=== PATIENT | female | born 1975 | race Caucasian/White ===

== ENCOUNTER 2016-06-27 16:06 | Emergency (ER) | payer BC ==
[2016-06-27 17:29] VITALS: BP 138/92
--- NOTE | 2016-06-27 17:39 | UC ---
Throat Pain/Nasal Ad HPI - HPI Summary HPI Summary: complaint nasal congestion that started 9 days ago frequent headaches, ears feels plugged productive cough coughing is worse at night hasn't used albuterol inhaler because it has run out taking motrin for headache relief completed tamiflu last week for dx of influenza - History of Current Complaint Chief Complaint: UCGeneralIllness Stated Complaint: SINUS COMPLAINT Time Seen by Provider: 06/27/16 17:33 Hx Obtained From: Patient Hx Last Menstrual Period: 06/13/16 - Allergies/Home Medications Allergies/Adverse Reactions: Allergies Allergy/AdvReac Type Severity Reaction Status Date / Time Penicillins Allergy Severe hives, rash Verified 06/27/16 17:22 Sulfa Drugs Allergy Unknown Unknown Verified 06/27/16 17:22 Reaction Details Morphine AdvReac Severe Vomiting Verified 06/27/16 17:22 Clarithromycin [From Biaxin] AdvReac Intermediate stomach Verified 06/27/16 17: 22 upset Home Medications: Home Medications Pediatric Multiple Vitamin W/ [Flintstones Gummies Plus] 1 chw PO DAILY [History Confirmed 06/27/16] PMH/Surg Hx/FS Hx/Imm Hx Previously Healthy: Yes Respiratory History Of: Reports: Asthma - Surgical History Surgical History: Yes Surgery Procedure, Year, and Place: . stomach surgery. jane. uterine ablation - Family History Known Family History: Negative: Cardiac Disease, Hypertension, Diabetes, Blood Disorder - Social History Occupation: Employed Full-time Lives: With Family Alcohol Use: None Substance Use Type: None Smoking Status (MU): Never Smoked Tobacco - Immunization History Most Recent Influenza Vaccination: 01/2016 Review of Systems Constitutional: Negative Skin: Negative Eyes: Negative ENT: Nasal Discharge Respiratory: Cough Cardiovascular: Negative Gastrointestinal: Negative Genitourinary: Negative Motor: Negative Neurovascular: Negative Musculoskeletal: Negative Neurological: Headache Psychological: Negative All Other Systems Reviewed And Are Negative: Yes Physical Exam Triage Information Reviewed: Yes Appearance: No Pain Distress, Well-Nourished Vital Signs: Initial Vital Signs Temp 97.6 F 06/27/16 17:25 Pulse 83 06/27/16 17:25 Resp 16 06/27/16 17:25 BP 138/92 06/27/16 17:25 Pulse Ox 99 06/27/16 17:25 Vital Signs Reviewed: Yes Eyes: Positive: Conjunctiva Clear ENT: Positive: Pharyngeal erythema, Nasal congestion, Nasal drainage, TMs normal Neck: Positive: No Lymphadenopathy Respiratory: Positive: No respiratory distress, No accessory muscle use, Wheezing. Negative: Rhonchi, Stridor Cardiovascular: Positive: RRR, No Murmur, Pulses Normal Abdomen Description: Positive: Nontender, Soft Bowel Sounds: Positive: Present Musculoskeletal: Positive: No Edema Neurological: Positive: Alert Psychological Exam: Normal Skin Exam: Normal Throat Pain/Nasal Course/Dx - Differential Dx/Diagnosis Differential Diagnosis/HQI/PQRI: Sinusitis, URI, Other - asthma Provider Diagnoses: asthma exacerbation, elevated blood pressure Discharge - Discharge Plan Condition: Stable Disposition: HOME Prescriptions: Albuterol HFA INHALER* [Ventolin HFA Inhaler*] 2 puff INH Q4H PRN #1 mdi PRN Reason: Wheezing Azithromycin TAB* [Zithromax TAB (Z-ANA LILIA) 250 mg #6 tabs] 2 tab PO .TODAY, THEN 1 DAILY #1 ana lilia predniSONE TAB* [Deltasone TAB*] 50 mg PO DAILY #5 tab Patient Education Materials: Asthma (ED) Referrals: Pilar Agarwal MD [Primary Care Provider] - Additional Instructions: Please take antibiotic as directed Use your albuterol inhaler every 4-6 hours when needed for wheezing, shortness of breath or uncontrolled coughing. Increase fluids and rest Take acetaminophen or ibuprofen for fever or pain Please review your discharge instructions. If your symptoms do not improve please call your primary care provider or return to urgent care. Your blood pressure is elevated. Please contact your primary care provider for further evaluation
== END 2016-06-27 17:49 | disposition home or self-care (01) ==
LOC: UCCORT 16:06
DX: J45.901 Unspecified asthma with (acute) exacerbation (principal); R03.0 Elevated blood-pressure reading, without diagnosis of hypertension; Z88.1 Allergy status to other antibiotic agents; Z88.5 Allergy status to narcotic agent; Z88.0 Allergy status to penicillin; Z88.2 Allergy status to sulfonamides; Z90.49 Acquired absence of other specified parts of digestive tract
CPT/HCPCS: 99212; G0463

== ENCOUNTER 2018-02-06 07:06 | Emergency (ER) | payer BC ==
[2018-02-06 07:27] VITALS: BP 131/74
--- NOTE | 2018-02-06 07:43 | UC ---
Throat Pain/Nasal Ad HPI - HPI Summary HPI Summary: sinus pain and pressure x 10 days , + nasal congestion with yellow / green discharge, + pnd, cough , no fever, no chills bilateral eye redness, itchy eyes, yellow crusty discharge since last night - History of Current Complaint Chief Complaint: UCRespiratory Stated Complaint: SINUS COMPLAINT Time Seen by Provider: 02/06/18 07:31 Hx Obtained From: Patient Hx Last Menstrual Period: 01/17/18 ?: No Onset/Duration: Gradual Onset, Lasting Days - 10, Still Present Severity: Moderate Pain Intensity: 0 Cough: Nonproductive Associated Signs & Symptoms: Positive: Sinus Discomfort, Nasal Discharge. Negative: Dysphagia, FB Sensation, Drooling, Wheezing, Hoarseness, Fever, Vomiting, Rash - Allergies/Home Medications Allergies/Adverse Reactions: Allergies Allergy/AdvReac Type Severity Reaction Status Date / Time clarithromycin Allergy Stomach Verified 02/06/18 07:35 upset Penicillins Allergy Hives, rash Verified 02/06/18 07:33 Sulfa (Sulfonamide Allergy Unknown Verified 02/06/18 07:33 Antibiotics) Reaction Details morphine AdvReac Severe Vomiting Verified 02/06/18 07:35 Home Medications: Home Medications Fluticasone NASAL SPRAY 50MCG* [Flonase NASAL SPRAY 50MCG*] 50 mcg BOTH NARES DAILY 02/06/18 [History Confirmed 02/06/18] Pantoprazole Sodium 40 mg PO DAILY 02/06/18 [History Confirmed 02/06/18] PMH/Surg Hx/FS Hx/Imm Hx Respiratory History: Asthma GI/ History: Gastroesophageal Reflux - Surgical History Surgical History: Yes Surgery Procedure, Year, and Place: . gastric surgery 1995. jane. uterine ablation - Family History Known Family History: Negative: Cardiac Disease, Hypertension, Diabetes, Blood Disorder - Social History Alcohol Use: None Substance Use Type: None Smoking Status (MU): Never Smoked Tobacco - Immunization History Most Recent Influenza Vaccination: 01/2016 Review of Systems Constitutional: Negative Skin: Negative Eyes: Drainage, Eye Redness ENT: Nasal Discharge, Sinus Congestion, Sinus Pain/Tenderness Respiratory: Cough Cardiovascular: Negative Gastrointestinal: Negative Is Patient Immunocompromised?: No All Other Systems Reviewed And Are Negative: Yes Physical Exam Triage Information Reviewed: Yes Appearance: Well-Appearing, No Pain Distress, Well-Nourished Vital Signs: Initial Vital Signs Temp 98.3 F 02/06/18 07:21 Pulse 80 02/06/18 07:21 Resp 20 02/06/18 07:21 BP 131/74 02/06/18 07:21 Pulse Ox 100 02/06/18 07:21 Eyes: Positive: Conjunctiva Inflamed, Discharge ENT: Positive: Normal ENT inspection, Hearing grossly normal, Pharynx normal, Nasal congestion, Nasal drainage, TMs normal, Sinus tenderness Neck exam: Normal Neck: Positive: Supple, Nontender, No Lymphadenopathy Respiratory: Positive: Chest non-tender, Lungs clear, Normal breath sounds Cardiovascular: Positive: RRR, No Murmur, Pulses Normal Skin Exam: Normal Throat Pain/Nasal Course/Dx - Differential Dx/Diagnosis Provider Diagnoses: sinusitis. conjunctivitis Discharge - Sign-Out/Discharge Documenting (check all that apply): Patient Departure All imaging exams completed and their final reports reviewed: No Studies - Discharge Plan Condition: Stable Disposition: HOME Prescriptions: Azithromycin TAB* [Zithromax TAB (Z-ANA LILIA) 250 mg #6 tabs] 2 tab PO .TODAY, THEN 1 DAILY #1 ana lilia Tobramycin 0.3% OPHTH.TIAN* 1 drop BOTH EYES Q4H #1 btl Patient Education Materials: Sinusitis (ED), Conjunctivitis (ED) Referrals: No Primary Care Phys,NOPCP [Primary Care Provider] - 7 Days - Billing Disposition and Condition Condition: STABLE Disposition: Home
== END 2018-02-06 07:45 | disposition home or self-care (01) ==
LOC: UCCORT 07:06
DX: J32.9 Chronic sinusitis, unspecified (principal); H10.9 Unspecified conjunctivitis; K21.9 Gastro-esophageal reflux disease without esophagitis; J45.909 Unspecified asthma, uncomplicated; Z88.1 Allergy status to other antibiotic agents; Z88.2 Allergy status to sulfonamides; Z88.5 Allergy status to narcotic agent; Z88.0 Allergy status to penicillin; Z79.899 Other long term (current) drug therapy
CPT/HCPCS: 99212; G0463

== ENCOUNTER 2018-04-24 09:35 | Emergency (ER) | payer BC ==
[2018-04-24 09:55] VITALS: BP 125/82
--- NOTE | 2018-04-24 10:08 | UC ---
Throat Pain/Nasal Ad HPI - HPI Summary HPI Summary: 42 yo female presents with sinus pain/pressure/congestion for the last 5 days, but has had issues with allergies and a runny nose for the last 3 weeks. She has been taking sudafed otc with no relief. Denies fever, chills, sore throat, cough. - History of Current Complaint Chief Complaint: UCRespiratory Stated Complaint: SINUS ISSUE Time Seen by Provider: 04/24/18 10:08 Hx Obtained From: Patient Hx Last Menstrual Period: 04/03/18 Onset/Duration: Gradual Onset Severity: Mild Pain Intensity: 2 Pain Scale Used: 0-10 Numeric - Allergies/Home Medications Allergies/Adverse Reactions: Allergies Allergy/AdvReac Type Severity Reaction Status Date / Time clarithromycin Allergy Stomach Verified 04/24/18 09:55 upset Penicillins Allergy Hives, rash Verified 04/24/18 09:55 Sulfa (Sulfonamide Allergy Unknown Verified 04/24/18 09:55 Antibiotics) Reaction Details morphine AdvReac Severe Vomiting Verified 04/24/18 09:55 Home Medications: Home Medications Ca/D3/Mag/Zinc/Rodnye/Dandy/Mgbor [Caltrate 600-D3-Min Chew Tab] 1 each PO DAILY [History Confirmed 04/24/18] Escitalopram Oxalate [Lexapro 20 mg] 20 mg PO DAILY 04/24/18 [History Confirmed 04/24/18] L.acidoph,Paracasei, B.lactis [Probiotic] 1 each PO DAILY 04/24/18 [History Confirmed 04/24/18] PMH/Surg Hx/FS Hx/Imm Hx Respiratory History: Asthma GI/ History: Gastroesophageal Reflux Psychological History: Anxiety, Depression - Surgical History Surgical History: Yes Surgery Procedure, Year, and Place: . gastric surgery 1995. jane. uterine ablation - Family History Known Family History: Negative: Cardiac Disease, Hypertension, Diabetes, Blood Disorder - Social History Occupation: Employed Full-time Lives: With Family Alcohol Use: None Substance Use Type: None Smoking Status (MU): Never Smoked Tobacco - Immunization History Most Recent Influenza Vaccination: 01/2016 Review of Systems All Other Systems Reviewed And Are Negative: Yes Constitutional: Positive: Negative Skin: Positive: Negative Eyes: Positive: Negative ENT: Positive: Nasal Discharge, Sinus Congestion, Sinus Pain/Tenderness Respiratory: Positive: Negative Cardiovascular: Positive: Negative Gastrointestinal: Positive: Negative Neurovascular: Positive: Negative Neurological: Positive: Negative Psychological: Positive: Negative Physical Exam - Summary Physical Exam Summary: GENERAL: NAD. WDWN. No pain distress. SKIN: No rashes, sores, lesions, or open wounds. HEENT: Head: AT/NC Eyes: EOM intact. Conjunctiva clear without inflammation or discharge. Ears: Hearing grossly normal. TMs intact, no bulging, erythema, or edema. Nose: Nasal mucosa mildly swollen and erythematous with yellow/ clear discharge. TTP maxillary and frontal sinus. Positive post nasal drip Throat: Posterior oropharynx without exudates, erythema, or tonsillar enlargement. Uvula midline. NECK: Supple. Nontender. No lymphadenopathy. CHEST: CTAB. No r/r/w. No accessory muscle use. Breathing comfortably and in no distress. CV: RRR. Without m/r/g. Pulses intact. NEURO: Alert. PSYCH: Age appropriate behavior. Triage Information Reviewed: Yes Vital Signs: Initial Vital Signs Temp 98.7 F 04/24/18 09:51 Pulse 82 04/24/18 09:51 Resp 18 04/24/18 09:51 BP 125/82 04/24/18 09:51 Pulse Ox 100 04/24/18 09:51 Vital Signs Reviewed: Yes Throat Pain/Nasal Course/Dx - Course Course Of Treatment: Sinusitis - Differential Dx/Diagnosis Provider Diagnosis: Sinusitis Discharge - Sign-Out/Discharge Documenting (check all that apply): Patient Departure All imaging exams completed and their final reports reviewed: No Studies - Discharge Plan Condition: Stable Disposition: HOME Prescriptions: Azithromycin TAB* [Zithromax TAB (Z-ANA LILIA) 250 mg #6 tabs] 2 tab PO .TODAY, THEN 1 DAILY #1 ana lilia Patient Education Materials: Sinusitis (ED) Referrals: Cristine Pinto MD [Primary Care Provider] - Additional Instructions: If you develop a fever, shortness of breath, chest pain, new or worsening symptoms - please call your PCP or go to the ED. - Billing Disposition and Condition Condition: STABLE Disposition: Home
== END 2018-04-24 10:18 | disposition home or self-care (01) ==
LOC: UCEAST 09:35
DX: J32.9 Chronic sinusitis, unspecified (principal); F41.9 Anxiety disorder, unspecified; F32.9 Major depressive disorder, single episode, unspecified; Z88.1 Allergy status to other antibiotic agents; Z88.5 Allergy status to narcotic agent; Z88.0 Allergy status to penicillin; Z88.2 Allergy status to sulfonamides
CPT/HCPCS: 99212; G0463

== ENCOUNTER 2019-01-13 10:34 | Emergency (ER) | payer BC ==
[2019-01-13 11:47] VITALS: BP 127/84
--- NOTE | 2019-01-13 12:04 | UC ---
Throat Pain/Nasal Ad HPI - HPI Summary HPI Summary: 4 DAYS AGO , HOARSNESS, COUGH, CHEST CONGESITON, RUNNY NOSE, FTIUGE. NO FEVER OR CHILLS. NO HEAD OR BODY ACHES. - History of Current Complaint Chief Complaint: UCRespiratory Stated Complaint: COUGH,CONGESTION Time Seen by Provider: 01/13/19 12:02 Hx Obtained From: Patient Hx Last Menstrual Period: 01/12/19 ?: No Onset/Duration: Sudden Onset, Lasting Days Severity: Mild Pain Intensity: 0 Associated Signs & Symptoms: Positive: Dysphagia, Hoarseness, Sinus Discomfort, Nasal Discharge - Allergies/Home Medications Allergies/Adverse Reactions: Allergies Allergy/AdvReac Type Severity Reaction Status Date / Time clarithromycin Allergy Stomach Verified 01/13/19 11:39 upset Penicillins Allergy Hives, rash Verified 01/13/19 11:39 Sulfa (Sulfonamide Allergy Unknown Verified 01/13/19 11:39 Antibiotics) Reaction Details morphine AdvReac Severe Vomiting Verified 01/13/19 11:39 PMH/Surg Hx/FS Hx/Imm Hx Previously Healthy: Yes Respiratory History: Asthma - Surgical History Surgical History: Yes Surgery Procedure, Year, and Place: . gastric surgery 1995. jane. uterine ablation - Family History Known Family History: Negative: Cardiac Disease, Hypertension, Diabetes, Blood Disorder - Social History Alcohol Use: None Substance Use Type: None Smoking Status (MU): Never Smoked Tobacco - Immunization History Most Recent Influenza Vaccination: 01/2016 Review of Systems All Other Systems Reviewed And Are Negative: Yes Constitutional: Positive: Chills, Fatigue ENT: Positive: Sore Throat, Nasal Discharge, Sinus Congestion Respiratory: Positive: Shortness Of Breath, Cough Is Patient Immunocompromised?: No Physical Exam Triage Information Reviewed: Yes Appearance: Well-Nourished, Ill-Appearing, Pain Distress Vital Signs: Initial Vital Signs Temp 98.7 F 01/13/19 11:41 Pulse 89 01/13/19 11:41 Resp 20 01/13/19 11:41 BP 127/84 01/13/19 11:41 Pulse Ox 99 01/13/19 11:41 Vital Signs Reviewed: Yes Eye Exam: Normal ENT: Positive: Pharyngeal erythema - withpND Dental Exam: Normal Neck exam: Normal Respiratory: Positive: Chest non-tender, No respiratory distress, Decreased breath sounds, Rhonchi, Wheezing Cardiovascular Exam: Normal Cardiovascular: Positive: RRR, No Murmur, Pulses Normal Abdominal Exam: Normal Bowel Sounds: Positive: Present Musculoskeletal Exam: Normal Neurological Exam: Normal Psychological Exam: Normal Skin Exam: Normal Throat Pain/Nasal Course/Dx - Course Course Of Treatment: hx obtained, exam performed,meds reviewed, given a duo neb and prescribed prednisone and albuterol was treated for a sinus infection 2 weeks ago - Differential Dx/Diagnosis Differential Diagnosis/HQI/PQRI: Otitis Media, Pharyngitis, Sinusitis Provider Diagnosis: Bronchitis Discharge ED - Sign-Out/Discharge Documenting (check all that apply): Patient Departure All imaging exams completed and their final reports reviewed: No Studies - Discharge Plan Condition: Stable Disposition: HOME Prescriptions: Albuterol HFA INHALER* [Ventolin HFA Inhaler*] 2 puff INH Q4H PRN #1 mdi PRN Reason: Cough predniSONE [Prednisone 20 MG TAB] 40 mg PO DAILY #10 tablet Patient Education Materials: Acute Bronchitis (ED) Referrals: Cristine Pinto MD [Primary Care Provider] - Additional Instructions: 1. take the medication as prescribed 2. Use the inhaler as needed. 3. Lots of fluids and salt water gargles 4. Rest 5/ Follow up as needed. - Billing Disposition and Condition Condition: STABLE Disposition: Home - Attestation Statements Provider Attestation: I was available for consult. This patient was seen by the MARGARET. The patient was not presented to , seen by or examined by wi -Cameron Dunaway MD
[2019-01-13] MEDS ORDERED: Albuterol/Ipratropium NEB.SOL* Albuterol 2.5 MG/Ipratropium 0.5 MG 3 ML INH ONE (12:17)
== END 2019-01-13 13:03 | disposition home or self-care (01) ==
LOC: UCCORT 10:34
DX: J40 Bronchitis, not specified as acute or chronic (principal); R09.89 Other specified symptoms and signs involving the circulatory and respiratory systems; Z88.1 Allergy status to other antibiotic agents; Z88.0 Allergy status to penicillin; Z88.2 Allergy status to sulfonamides; Z88.5 Allergy status to narcotic agent; Z98.84 Bariatric surgery status
CPT/HCPCS: 99212; A9270-GY; G0463